=== PATIENT | female | born 1990 | race Caucasian/White ===

== ENCOUNTER 2019-01-15 11:59 | Emergency (ER) | payer SELFPAY ==
[2019-01-15] MEDS ORDERED: SODIUM CHLORIDE 0.9% 1000ML 1,000 ML IVS ONE ×2 (12:22→14:17)
[2019-01-15] MEDS ORDERED: IBUPROFEN 200 MG TAB PO ONE (12:23)
[2019-01-15] MEDS ORDERED: ONDANSETRON INJ 4 MG/2 ML VIAL IV ONE (12:23)
--- NOTE | 2019-01-15 13:01 | ED.PDOC ---
History of Present Illness - General Chief Complaint: GI Problem Stated Complaint: n/v, back pain, UTI Time Seen by Provider: 01/15/19 12:38 Source: patient Exam Limitations: no limitations - History of Present Illness Initial Comments: PT HAS BEEN ILL FOR 1 WEEK. INITIALLY WITH FREQUENCY, DYSURIA. SAW PROVIDER 3 DAYS AGO STATES WAS RUNNING A FEVER AT THAT TIME. STARTED ON BACTRIM AND HAS GOTTEN WORSE. STILL RUNNING FEVER WITH N/V, DYSURIA. NOW HAS DEVELOPED ABDOMINAL PAIN HAVING FLANK PAIN. Severity: moderate Improving Factors: nothing Allergies/Adverse Reactions: Allergies NO KNOWN ALLERGY Allergy (Verified 01/15/19 12:14) Home Medications: Ambulatory Orders Cefuroxime Axetil [Ceftin] 500 mg PO Q12H #20 tablet 01/15/19 Ondansetron Tab [Zofran Tab] 4 mg PO TID PRN #10 tab 01/15/19 Sulfa/Trimeth 800/160 (Ds) Tab [Bactrim DS] 1 amb .ROUTE DAILY 01/15/19 Review of Systems - Review of Systems Constitutional: States: chills, fever EENTM: States: no symptoms reported Respiratory: Denies: cough, short of breath Cardiology: Denies: chest pain, palpitations Gastrointestinal/Abdominal: States: abdominal pain, nausea, vomiting. Denies: diarrhea Genitourinary: States: dysuria, frequency Musculoskeletal: States: back pain. Denies: neck pain Skin: States: no symptoms reported Neurological: States: no symptoms reported Endocrine: States: no symptoms reported Hematologic/Lymphatic: States: no symptoms reported Past Medical History (General) - Patient Medical History Hx Seizures: No Hx Asthma: No Hx Hypertension: No Hx Diabetes: No Hx MRSA: No Surgical History: appendectomy, other - Vaccination History Hx Tetanus, Diphtheria Vaccination: No Hx Influenza Vaccination: No Hx Pneumococcal Vaccination: No - Social History Hx Tobacco Use: No - Female History Patient is a Female of Child Bearing Age (10 -59 yrs old): Yes Patient : No Family Medical History - Family History Mother Family History: No Known Physical Exam - Physical Exam General Appearance: Alert, No apparent distress, Other - APPEARS NOT TO FEEL WELL Eye Exam: bilateral normal Ears, Nose, Throat: hearing grossly normal, normal ENT inspection Neck: non-tender, full range of motion, supple Respiratory: lungs clear, normal breath sounds Cardiovascular/Chest: no murmur, tachycardia Gastrointestinal/Abdominal: soft, no organomegaly, other - MILD DIFFUSE LOWER ABD TTP Back Exam: normal inspection, CVA tenderness (R), CVA tenderness (L) Extremity: normal range of motion, non-tender, normal inspection, no pedal edema, no calf tenderness Neurologic: alert, normal mood/affect Skin Exam: normal color, warm/dry Lymphatic: no adenopathy Progress - Progress Progress: 01/15/19 14:17 FEELS MUCH BETTER, PULSE 90-100. LACTIC ACID NEG. 01/15/19 15:12 CONTINUES TO FEEL BETTER. VSS. Departure - Departure Clinical Impression: Pyelonephritis ICD-10 Supporting Text: PARTIALLY TREATED Time of Disposition: 15:13 Disposition: Discharge to Home or Self Care Condition: Good Departure Forms: ED Discharge - Pt. Copy, Patient Portal Self Enrollment Instructions: Kidney Infection (DC) Prescriptions: Cefuroxime Axetil [Ceftin] 500 mg PO Q12H #20 tablet Ondansetron Tab [Zofran Tab] 4 mg PO TID PRN #10 tab PRN Reason: Nausea/Vomiting Home Medications: Ambulatory Orders Cefuroxime Axetil [Ceftin] 500 mg PO Q12H #20 tablet 01/15/19 Ondansetron Tab [Zofran Tab] 4 mg PO TID PRN #10 tab 01/15/19 Sulfa/Trimeth 800/160 (Ds) Tab [Bactrim DS] 1 amb .ROUTE DAILY 01/15/19
[2019-01-15] MEDS ORDERED: cefTRIAXone SODIUM 1 GM in SODIUM CHL 0.9% 50ML MIN-BAG+ 50 ML IVPB ONE (14:17)
[2019-01-15] MEDS ORDERED: SODIUM CHL 0.9% 50ML MIN-BAG+ 50 ML IVPB ONE (14:18)
[2019-01-15] MEDS ORDERED: cefTRIAXone SODIUM 1 GM VIAL ONE (14:18)
[2019-01-15 15:09] VITALS: BP 106/72
[2019-01-15 15:40] VITALS: TEMP 98.8; O2SAT 97
== END 2019-01-15 15:27 | disposition home or self-care (01) ==
LOC: ER 11:59
DX: N12 Tubulo-interstitial nephritis, not specified as acute or chronic (principal); R11.2 Nausea with vomiting, unspecified
CPT/HCPCS: 36415; 80048; 81001; 83605; 85025; 87040; 87086; J0696; J2405; J7030; J7050

== ENCOUNTER → 2020-10-21 | Outpatient (CLI) | payer SELFPAY | LOC: YCFC.O 10:22 | PROVIDERS: ATTEND Nurse Practitioner Family | DX: N39.0 Urinary tract infection, site not specified (principal) ==